=== PATIENT | male | born 1970 | race American Indian/Alaskan Native ===

== ENCOUNTER 2018-03-29 20:57 | Emergency (ER) | payer OTHER, SELFPAY ==
[2018-03-29 21:12] VITALS: BMI 29.0
--- NOTE | 2018-03-29 21:26 | ED PDOC ---
Arrival/HPI - General Chief Complaint: Lower Extremity Problem/Injury Time Seen by Provider: 03/29/18 21:20 Historian: Patient - History of Present Illness Narrative History of Present Illness (Text): 03/29/18 21:24 Idris Gibbs is a 48 year old male who presents to the Emergency department complaining of left ankle pain. Patient states he woke up this morning with left ankle pain and swelling, notes he has been unable to bear weight on the ankle secondary to pain. Patient states he took Ibuprofen 800 mg with no significant relief. Patient notes he was dancing yesterday evening. Patient denies any calf pain, weakness/numbness/tingling in the extremity, recent trauma , or any other complaints. Symptom Onset: Gradual Symptom Course: Unchanged Activities at Onset: Light Context: Home Past Medical History - Provider Review Nursing Documentation Reviewed: Yes - Infectious Disease Hx of Infectious Diseases: None - Psychiatric Hx Substance Use: No Family/Social History - Physician Review Nursing Documentation Reviewed: Yes Family/Social History: Unknown Family HX Smoking Status: Never Smoked Hx Alcohol Use: Yes Frequency of alcohol use: Socially Hx Substance Use: No Allergies/Home Meds Allergies/Adverse Reactions: Allergies apple Allergy (Verified 03/29/18 21:12) ANAPHYLAXIS chocolate flavor Allergy (Verified 03/29/18 21:12) ANAPHYLAXIS peanut Allergy (Verified 03/29/18 21:12) ANAPHYLAXIS penicillin G Allergy (Verified 03/29/18 21:12) ANAPHYLAXIS Review of Systems - Physician Review All systems were reviewed & negative as marked: Yes - Review of Systems Constitutional: Normal. absent: Fevers Eyes: Normal ENT: Normal Respiratory: Normal. absent: SOB, Cough Cardiovascular: Normal. absent: Chest Pain Gastrointestinal: Normal. absent: Abdominal Pain, Diarrhea, Nausea, Vomiting Genitourinary Male: Normal. absent: Dysuria, Frequency, Hematuria, Urinary Output Changes Musculoskeletal: Arthralgias (+left ankle pain/swelling). absent: Neck Pain Skin: Normal. absent: Rash Neurological: Normal. absent: Headache, Dizziness Endocrine: Normal Hemo/Lymphatic: Normal Psychiatric: Normal Physical Exam Vital Signs Reviewed: Yes Vital Signs Temp Pulse Resp BP Pulse Ox 03/29/18 23:15 98.6 F 88 16 130/82 98 03/29/18 21:11 99.4 F 93 H 19 136/89 96 Temperature: Afebrile Blood Pressure: Normal Pulse: Regular Respiratory Rate: Normal Appearance: Positive for: Well-Appearing, Non-Toxic, Comfortable Pain Distress: None Mental Status: Positive for: Alert and Oriented X 3 - Systems Exam Head: Present: Atraumatic, Normocephalic Pupils: Present: PERRL Extroacular Muscles: Present: EOMI Conjunctiva: Present: Normal Mouth: Present: Moist Mucous Membranes Neck: Present: Normal Range of Motion Respiratory/Chest: Present: Clear to Auscultation, Good Air Exchange. No: Respiratory Distress, Accessory Muscle Use Cardiovascular: Present: Regular Rate and Rhythm, Normal S1, S2. No: Murmurs Lower Extremity: Present: NORMAL PULSES, Swelling (Swelling to left lateral malleolus/ankle), Neurovascularly Intact, Capillary Refill < 2 s. No: Edema, CALF TENDERNESS, Cyanosis, Erythema, Deformity, Temperature Abnormalties Neurological: Present: GCS=15, CN II-XII Intact, Speech Normal Skin: Present: Warm, Dry, Normal Color. No: Rashes Psychiatric: Present: Alert, Oriented x 3, Normal Insight, Normal Concentration Medical Decision Making ED Course and Treatment: 03/29/18 21:24 Impression: 48 year old male complaining of left ankle pain and swelling since this morning. Differential Diagnosis included but are not limited to: ankle sprain vs. fracture vs. Gout Plan: -- XR Left Ankle -- Ultram -- Reassess and disposition Progress Notes: 03/29/18 22:16 Reviewed radiology, XR Left Ankle shows no acute processes/no fracture. 03/29/18 22:55 On re-evaluation, patient feels better and is in no acute distress. I have discussed the results and plan with the patient, who expresses understanding. Patient in agreement with plan to be discharged home. Patient is stable for discharge. Patient was instructed to follow up with physician or return if symptoms worsen or new concerning symptoms arise. 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 No Sleep Is patient sleeping during reassessment? No Presence of Pain Presence of Pain Yes Pain Scale Used Pain Scale Used Numeric Location Left, Right or Bilateral Left Pain Location Body Site Ankle Description Description Intermittent Intensity of Pain at present 9 Pain Behavior Moaning Irritability Grasping Site Facial Grimacing - Scribe Statement The provider has reviewed the documentation as recorded by the [place] Borjas Provider Scribe Attestation: All medical record entries made by the Scribe were at my direction and personally dictated by me. I have reviewed the chart and agree that the record accurately reflects my personal performance of the history, physical exam, medical decision making, and the department course for this patient. I have also personally directed, reviewed, and agree with the discharge instructions and disposition. Disposition/Present on Arrival - Present on Arrival Any Indicators Present on Arrival: No History of DVT/PE: No History of Uncontrolled Diabetes: No Urinary Catheter: No History of Decub. Ulcer: No History Surgical Site Infection Following: None - Disposition Have Diagnosis and Disposition been Completed?: Yes Diagnosis: Ankle sprain Disposition: HOME/ ROUTINE Disposition Time: 22:58 Patient Plan: Discharge Condition: GOOD Discharge Instructions (ExitCare): Ankle Sprain (DC) Additional Instructions: Maintain ankle air cast/use crutches/take meds as prescribed/follow up with the orthopedist this week Prescriptions: Tramadol HCl [Ultram] 50 mg PO Q6 PRN #16 tab PRN Reason: Pain, Moderate (4-7) Referrals: [facility] Radha Whitten, [Non-Staff] - Follow up with primary Lynn Way MD [Staff Provider] - Follow up with primary Forms: Tailored (Japanese)
[2018-03-30 00:37] VITALS: BP 130/82; PULSE 88; RESP 16; TEMP 98.6; O2SAT 98
--- NOTE | 2018-03-30 08:20 | RAD ---
PROCEDURE: Left Ankle Radiographs. HISTORY: PAIN/INJURY COMPARISON: None FINDINGS: BONES: Normal. No fracture. JOINTS: Normal. No osteoarthritis. Ankle mortise maintained. Talar dome intact SOFT TISSUES: Normal. OTHER FINDINGS: None. IMPRESSION: Normal left ankle radiographs.
== END 2018-03-29 23:15 | disposition home or self-care (01) ==
LOC: ED 20:57
DX: S93.402A Sprain of unspecified ligament of left ankle, initial encounter (principal); Y93.41 Activity, dancing